=== PATIENT | male | born 1950 | race Caucasian/White ===

== ENCOUNTER 2019-08-01 | Day surgery (SDC) | payer MEDICARE ==
[~2019-08-01] MED LIST: AMLODIPINE BESY10 MG PO; ASPIRIN81 MG PO; LIPITOR40 M1 PO; LISINOPRIL20 MG PO
== END 2019-08-01 10:40 | disposition home or self-care (01) ==
PROC: 0DBG8ZX Excision of Left Large Intestine, Via Natural or Artificial Opening Endoscopic, Diagnostic (ICD-10-PCS; principal; 2019-08-01)
PROC: 0DBL8ZX Excision of Transverse Colon, Via Natural or Artificial Opening Endoscopic, Diagnostic (ICD-10-PCS; 2019-08-01)
PROC: 0DBF8ZX Excision of Right Large Intestine, Via Natural or Artificial Opening Endoscopic, Diagnostic (ICD-10-PCS; 2019-08-01)
PROC: 0DBP8ZX Excision of Rectum, Via Natural or Artificial Opening Endoscopic, Diagnostic (ICD-10-PCS; 2019-08-01)
PROC: 3E0H8GC Introduction of Other Therapeutic Substance into Lower GI, Via Natural or Artificial Opening Endoscopic (ICD-10-PCS; 2019-08-01)
DX: D12.2 Benign neoplasm of ascending colon (principal); D12.3 Benign neoplasm of transverse colon